=== PATIENT | female | born 1950 | race Caucasian/White ===

== ENCOUNTER 2017-12-21 13:42 | Emergency (ER) | payer MEDICARE, OTHER ==
[2017-12-21] MEDS ORDERED: FAMOTIDINE 20 MG TABLET PO ONE (14:54)
[2017-12-21] MEDS ORDERED: MAG HYDROX/AL HYDROX/SIMETH SUSP 30 ML UDCUP PO ONE (14:54)
[2017-12-21] MEDS ORDERED: LORAZEPAM INJ 2 MG/1 ML VIAL IV ONE ×3 (14:55→23:17)
[2017-12-21 15:05] LABS: ABSOLUTE EOSINOPHILS # (AUTO) 0.1 10^3/uL (0.0-0.6); ABSOLUTE MONOCYTES (AUTO) 0.3 10^3/uL (0.1-1.4); ABSOLUTE NEUT (AUTO) 3.6 10^3/uL (1.7-8.2); BASOPHILS % (AUTO) 0.7 % (0-2); EOSINOPHILS % (AUTO) 1.1 % (0-6); HEMATOCRIT 32.2 % (36.0-47.0); HEMOGLOBIN 10.7 g/dL (12.0-15.5); LYMPHOCYTES % (AUTO) 20.1 % (13-45); MEAN CORPUSCULAR HEMOGLOBIN 29.7 pg (27.0-33.4); MEAN CORPUSCULAR HGB CONC 33.1 g/dL (32.0-36.0); MEAN CORPUSCULAR VOLUME 90 fl (80-97); PLATELET COUNT 221 10^3/uL (150-450); RED BLOOD COUNT 3.59 10^6/uL (3.72-5.28); RED CELL DISTRIBUTION WIDTH 15.4 % (11.5-14.0); SEGMENTED NEUTROPHILS % (AUTO) 72.1 % (42-78); TOTAL CELLS COUNTED % (AUTO) 100 %; WHITE BLOOD COUNT 4.9 10^3/uL (4.0-10.5)
[2017-12-21 15:08] LABS: ALANINE AMINOTRANSFERASE 29 U/L (9-52); ALBUMIN 4.5 g/dL (3.5-5.0); ALKALINE PHOSPHATASE 99 U/L (38-126); ANION GAP 13 (5-19); ASPARTATE AMINO TRANSFERASE 57 U/L (14-36); BILIRUBIN,DIRECT 0.2 mg/dL (0.0-0.4); BILIRUBIN,TOTAL 0.6 mg/dL (0.2-1.3); BLOOD UREA NITROGEN 11 mg/dL (7-20); CALCIUM 8.9 mg/dL (8.4-10.2); CARBON DIOXIDE 27 mmol/L (22-30); CHLORIDE 94 mmol/L (98-107); GLUCOSE 130 mg/dL (75-110); LIPASE 104.4 U/L (23-300); POTASSIUM 4.6 mmol/L (3.6-5.0); SODIUM 134.4 mmol/L (137-145); TOTAL PROTEIN 7.3 g/dL (6.3-8.2)
--- NOTE | 2017-12-21 15:08 | ER Document Report ---
ED General - General Chief Complaint: Chest Pressure Stated Complaint: CHEST PAIN Time Seen by Provider: 12/21/17 14:28 Mode of Arrival: Medic Information source: Patient, Relative - [facility] Notes: Patient is a 67-year-old female history of alcoholism, cardiac stents prior to a three-vessel coronary bypass in 2006 with last negative cardiac stress test 1 year ago and history of upper endoscopy September 2017 showing peptic ulcer disease , gastric bypass 2004, tonsillectomy, thyroid disorder status post chemical ablation, [id number] diabetes, previous hysterectomy who is currently on Glucophage Synthroid Zoloft and rare as needed Ativan presents to the emergency department with report that she has been binge drinking for the last 6 days straight last had alcohol yesterday at 1800 and comes in with report that she walked out to take her trash and noted some chest pain and nausea, describing her chest pain is midepigastric to lower chest wall region. The patient reports no dyspnea, constipation, diarrhea, dysuria, fever, chills. She states she feels slightly tremulous related to not having any alcohol since yesterday. The patient was given aspirin in route by EMS and was given sublingual nitro without any change in her chest pain. She was given Zofran in route by EMS with some improvement in over nausea. Patient denies any significant back pain. No prior history of alcohol withdrawal seizures or pancreatitis by her report. She drinks up to 2-1/2 bottles 750 mL's of wine per day, but will go without alcohol on occasion. Patient also reports some left leg swelling. She denies any Trauma to the area. There is no history of congestive heart failure. The patient denies any pleuritic chest pain. The patient reports no pain to the left leg. The left leg is the donor site for her previous bypass. - Related Data Allergies/Adverse Reactions: codeine Allergy (Verified 12/21/17 14:40) Past Medical History - General Information source: Patient, Relative - Social History Smoking Status: Former Smoker Frequency of alcohol use: Heavy Drug Abuse: None Lives with: Alone Family History: Reviewed & Not Pertinent Patient has suicidal ideation: No Patient has homicidal ideation: No - Past Medical History Cardiac Medical History: Reports: Hx Hypertension Endocrine Medical History: Reports: Hx Diabetes Mellitus Type 2 Renal/ Medical History: Denies: Hx Peritoneal Dialysis Past Surgical History: Reports: Hx Hysterectomy, Hx Open Heart Surgery, Hx Tonsillectomy Review of Systems - Review of Systems -: Yes All other systems reviewed and negative Physical Exam - Vital signs Vitals: Resp 15 12/21/17 13:44 - Notes Notes: PHYSICAL EXAMINATION: GENERAL: Well-appearing, well-nourished and in no acute distress. HEAD: Atraumatic, normocephalic. EYES: Pupils equal round and reactive to light, extraocular movements intact, conjunctiva are normal. ENT: Nares patent, oropharynx clear without exudates. Moist mucous membranes. NECK: Normal range of motion, supple without lymphadenopathy LUNGS: Breath sounds clear to auscultation bilaterally and equal. No wheezes rales or rhonchi. HEART: Regular rate and rhythm without murmurs ABDOMEN: Soft, nontender, nondistended abdomen. No guarding, no rebound. No masses appreciated. Patient localizes her previous pain is midepigastric region to lower chest, but I am unable to reproduce it. Female : deferred Musculoskeletal: Normal range of motion. No cyanosis. No edema right lower extremity with 1+ edema left lower extremity. There are some scattered contusions both lower extremities. No palpable cord. Negative Homans. Previous surgical scar left lower extremity from bypass surgery is well-healed and appropriate. NEUROLOGICAL: Cranial nerves grossly intact. Normal speech, normal gait. Normal sensory, motor exams. Very minor tremor noted. PSYCH: Normal mood, normal affect. SKIN: Warm, Dry, normal turgor, no rashes or lesions noted. Course - Re-evaluation Re-evalutation: 12/21/17 20:20 Ultrasound was negative for DVT in the left leg. After 2 mg of IV Ativan and Pepcid and Maalox, the patient denied any further chest pain or abdominal pain and had no tremor whatsoever. On repeat exam she was commonly playing a game on her cell phone and was without complaint. I question a mild UTI, and urine culture was taken and patient was given Bactrim by mouth. Initial troponin negative but a 4-hour repeat troponin doubled from its previous value. Call was made to [facility] for possible transfer. 12/21/17 20:23 Patient was hypothyroid, most likely secondary to noncompliance with her medications. Patient was given an additional 1 mg of IV Ativan, but showed no obvious evidence for alcohol withdrawal. Discussion was undertaken with Home Care Assistant Dr. Merino at [facility] , and he accepted the patient in transfer. 12/21/17 21:56 - Vital Signs Vital signs: Temp Pulse Resp BP Pulse Ox 97.9 F 16 137/70 H 99 12/21/17 20:30 12/21/17 21:36 12/21/17 21:36 12/21/17 21:36 - Laboratory Result Diagrams: 12/21/17 13:47 12/21/17 13:47 Laboratory results interpreted by me: 12/21/17 12/21/17 12/21/17 13:47 13:47 13:47 RBC 3.59 L Hgb 10.7 L Hct 32.2 L RDW 15.4 H Sodium 134.4 L Chloride 94 L Glucose 130 H POC Glucose AST 57 H TSH 35.40 H Free T4 0.46 L Urine Ketones Ur Leukocyte Esterase 12/21/17 12/21/17 15:12 16:37 RBC Hgb Hct RDW Sodium Chloride Glucose POC Glucose 113 H AST TSH Free T4 Urine Ketones 20 H Ur Leukocyte Esterase TRACE H - EKG Interpretation by Me EKG shows normal: Sinus rhythm Additional EKG results interpreted by me: 12/21/17 15:09 EKG as interpreted by me showed normal sinus rhythm heart rate of 79. There is no gross evidence for acute [place] or ischemia noted. There was artifact appreciated in lead V2. There was no old EKG available for comparison. Critical Care Note - Critical Care Note Total time excluding time spent on procedures (mins): 46 Discharge - Discharge Clinical Impression: Unstable angina, Urinary tract bacterial infections, Alcohol abuse, Elevated troponin I level Chest pain Qualifiers: Chest pain type: other chest pain Qualified Code(s): R07.89 - Other chest pain ; R07.8 - Other chest pain Hypothyroidism Qualifiers: Hypothyroidism type: other Qualified Code(s): E03.8 - Other specified hypothyroidism Condition: Stable Disposition: [facility] Referrals: SHONA PALOMARES DO [Primary Care Provider] - Follow up as needed
[2017-12-21 15:09] LABS: ALCOHOL < 10 mg/dL (NONE DETECTED)
[2017-12-21 15:19] LABS: NT PRO BNP 154 pg/mL (5-900)
[2017-12-21 15:20] LABS: TROPONIN I < 0.012 ng/mL
--- NOTE | 2017-12-21 15:27 | RADIOLOGY REPORT (SQ) ---
EXAM DESCRIPTION: CHEST SINGLE VIEW COMPLETED DATE/TIME: 12/21/2017 3:06 pm REASON FOR STUDY: chest pain COMPARISON: None. EXAM PARAMETERS: NUMBER OF VIEWS: One view. TECHNIQUE: Single frontal radiographic view of the chest acquired. RADIATION DOSE: NA LIMITATIONS: None. FINDINGS: LUNGS AND PLEURA: No opacities, masses or pneumothorax. No pleural effusion. MEDIASTINUM AND HILAR STRUCTURES: No masses. Contour normal. HEART AND VASCULAR STRUCTURES: Heart normal in size. Normal vasculature. BONES: No acute findings. HARDWARE: CABG. OTHER: No other significant finding. IMPRESSION: NO ACUTE RADIOGRAPHIC FINDING IN THE CHEST. TECHNICAL DOCUMENTATION: JOB ID: [id number] [employer]- All Rights Reserved Reading location - IP/workstation name: [email or web address]
[2017-12-21 15:31] LABS: FREE T4 (FREE THYROXINE) 0.46 ng/dL (0.78-2.19)
[2017-12-21 15:45] LABS: THYROID STIMULATING HORMONE 35.4 uIU/mL (0.47-4.68)
[2017-12-21 16:39] LABS: INTERNATIONAL RATION (INR) 1.03
[2017-12-21 17:12] LABS: APPEARANCE,URINE CLEAR; BILIRUBIN,URINE NEGATIVE (NEGATIVE); COLOR,URINE YELLOW; GLUCOSE, URINE NEGATIVE (NEGATIVE); KETONES,URINE 20 mg/dL (NEGATIVE); LEUKOCYTE ESTERASE,URINE TRACE (NEGATIVE); NITRITE,URINE NEGATIVE (NEGATIVE); PROTEIN,URINE NEGATIVE (NEGATIVE); URINE SPECIFIC GRAVITY 1.012; UROBILINOGEN,URINE NEGATIVE mg/dL (<2.0)
[2017-12-21] MEDS ORDERED: NORMAL SALINE 1000 ML 1,000 ML IV ONE (17:35)
[2017-12-21] MEDS ORDERED: SULFAMETHOXAZOLE/TRIMETHOPRIM 800-160 MG TABLET PO ONE (20:22)
--- NOTE | 2017-12-21 21:21 | RADIOLOGY REPORT (SQ) ---
PROCEDURE: ULTRASOUND OF THE LEFT LOWER EXTREMITY DEEP VENOUS SYSTEM CLINICAL HISTORY and INDICATION: Left lower extremity swelling COMPARISON: None. TECHNIQUE: The study was done on 12/21/2017 at 3:50 PM Patton scale imaging with duplex interrogation of the left lower extremity venous system was performed and multiple static images were obtained. FINDINGS: Utilizing compression and augmentation, there is no deep venous thrombus in the left common femoral, superficial femoral or popliteal veins. The left profunda femoris, posterior tibial and deep peroneal veins are patent and compressible. . The bilateral greater saphenous vein at the saphenofemoral junction is patent and compressible. The left greater saphenous vein at the level of the thigh, knee and below the knee is also patent There is no visualization of any subcutaneous fluid collections in either lower extremity. There is no visualization of any fluid collections in the right and left popliteal fossa. There is no evidence of reactive or pathological lymphadenopathy in the evaluated bilateral lower extremities. IMPRESSION: No deep venous thrombosis of the left lower extremity. Location of Interpretation: [id number]
[2017-12-21 23:12] VITALS: BP 110/64
--- NOTE | 2017-12-21 23:16 | EKG REPORT ---
SEVERITY:- NORMAL ECG - SINUS RHYTHM : Confirmed by: Eloy Wall 21-Dec-2017 23:15:30
== END 2017-12-21 23:26 | disposition short-term general hospital (02) ==
LOC: ER 13:42
DX: I20.0 Unstable angina (principal); N39.0 Urinary tract infection, site not specified; B96.89 Other specified bacterial agents as the cause of diseases classified elsewhere; E03.8 Other specified hypothyroidism; R07.89 Other chest pain; R79.89 Other specified abnormal findings of blood chemistry; I10 Essential (primary) hypertension; E11.9 Type 2 diabetes mellitus without complications; Z90.710 Acquired absence of both cervix and uterus; Z95.1 Presence of aortocoronary bypass graft; Z98.84 Bariatric surgery status
CPT/HCPCS: 93005; 96376; 99291; 96361; 96374; 36415; 87086; 84439; 82962; 80307; 83690; 83735; 84443; 85025; 85610; 80053; 81001; 84484; 83880; 93971; 71045; 93010; A9270 ×2; J2060; J7030

== ENCOUNTER 2018-01-05 09:30 | Emergency (ER) | payer MEDICARE, OTHER ==
--- NOTE | 2018-01-05 10:22 | ER Document Report ---
ED General - General Mode of Arrival: Ambulatory Information source: Patient TRAVEL OUTSIDE OF THE [place] IN LAST 30 DAYS: No <LORENZO CASTORENA - Last Filed: 01/05/18 19:47> <INESSCOTTMALLIKA - Last Filed: 01/05/18 19:58> - General Chief Complaint: Alcohol Withdrawl Stated Complaint: SUICIDAL IDEATION Time Seen by Provider: 01/05/18 09:49 Notes: Patient is a 67 year old female with a history of [place] presents to the emergency department via EMS accompanied by son in law due to a fall and suicidal ideation. Patient initially states she does not know why she is here and looks to her son in law to answer why. She states the EMS brought her here and mentions her daughter cutting the rings off her finger. Son states the patient recently fell and her left hand began to swell and EMS was called. EMS states upon arrival to the scene the patient then began to have suicidal ideation. At bedside, patient states she feels her family would be better off if she was not here. When asked if a blood sample could be obtained from her she states "I will slice open my wrists and you can have all the blood from me". She admits a history of suicidal ideation and alcohol abuse but denies any suicidal attempts. (LORENZO CASTORENA) - Related Data Allergies/Adverse Reactions: codeine Allergy (Verified 12/21/17 14:40) Past Medical History - Social History Smoking Status: Unknown if Ever Smoked Chew tobacco use (# tins/day): No Frequency of alcohol use: Heavy Drug Abuse: None Family History: Reviewed & Not Pertinent Patient has suicidal ideation: No Patient has homicidal ideation: No - Past Medical History Cardiac Medical History: Reports: Hx Heart Attack, Hx Hypertension Endocrine Medical History: Reports: Hx Diabetes Mellitus Type 1, Hx Diabetes Mellitus Type 2 Past Surgical History: Reports: Hx Hysterectomy, Hx Open Heart Surgery, Hx Tonsillectomy <LORENZO CASTORENA - Last Filed: 01/05/18 19:47> Review of Systems - Review of Systems Constitutional: No symptoms reported EENT: No symptoms reported Cardiovascular: No symptoms reported Respiratory: No symptoms reported Gastrointestinal: No symptoms reported Genitourinary: No symptoms reported Female Genitourinary: No symptoms reported Musculoskeletal: See HPI Skin: No symptoms reported Hematologic/Lymphatic: No symptoms reported Neurological/Psychological: See HPI, Suicidal ideation -: Yes All other systems reviewed and negative <KELLLORENZO BELLA - Last Filed: 01/05/18 19:47> Physical Exam <KELLLORENZO BELLA - Last Filed: 01/05/18 19:47> <MALLIKA GRIER - Last Filed: 01/05/18 19:58> - Vital signs Vitals: Temp Pulse Resp BP Pulse Ox 98.0 F 80 16 130/75 H 100 01/05/18 17:48 01/05/18 17:48 01/05/18 17:48 01/05/18 17:48 01/05/18 17:48 - Notes Notes: GENERAL: Crying, appears agitated. No acute distress. HEAD: Normocephalic, atraumatic. EYES: Pupils equal, round, and reactive to light. Extraocular movements intact. ENT: Oral mucosa moist, tongue midline. Lips stained with red wine. NECK: Full range of motion. Supple. Trachea midline. LUNGS: Clear to auscultation bilaterally, no wheezes, rales, or rhonchi. No respiratory distress. HEART: Regular rate and rhythm. No murmurs, gallops, or rubs. ABDOMEN: Soft, non-tender. Non-distended. Bowel sounds present in all 4 quadrants. EXTREMITIES: Moves all 4 extremities spontaneously. No edema, radial and dorsalis pedis pulses 2/4 bilaterally. No cyanosis. NEUROLOGICAL: Alert, oriented to person and place. Not oriented to time, states it is the year 2011 and believes Nick is president. Normal speech. PSYCH: Crying. Agitated. SKIN: Warm, dry, normal turgor. No rashes or lesions noted. (KELLLORENZO) Course - Laboratory Result Diagrams: 01/05/18 12:00 01/05/18 12:00 <KELL,TAMMEERA - Last Filed: 01/05/18 19:47> - Laboratory Result Diagrams: 01/05/18 12:00 01/05/18 12:00 <MALLIKA GRIER - Last Filed: 01/05/18 19:58> - Re-evaluation Re-evalutation: 01/05/18 16:56 CBC shows slight leukopenia with white count of 3.4, CMP shows slightly elevated sodium at 146.1, AST and ALT are both slightly elevated at 174 and 82 respectively, this is not surprising given her history of chronic alcoholism, urinalysis shows trace leukocyte esterase, only 1 WBC, she has no symptoms of infection. We will not treat this at this time. Urine drug screen is negative , serum alcohol level is 276. Patient has no signs of alcohol withdrawal at this time. She does smell of alcohol and is somewhat intoxicated patient is somewhat belligerent at the beginning and refuses to cooperate with the examination. Patient was placed on involuntary hold as she stated several times that her family would be better off if she were not here in this world, patient then offered to provide a blood sample by slicing open the veins in her wrist and draining all the blood out of her body. Patient is now medically cleared and we await further input from behavioral health who also agrees that she should stay on a 24-hour hold for reassessment tomorrow. 01/05/18 19:57 Patient now complaining of some nausea, will be treated with Zofran, CIWA protocol has been placed. (MALLIKA GRIER) - Vital Signs Vital signs: Temp Pulse Resp BP Pulse Ox 98.0 F 80 16 130/75 H 100 01/05/18 17:48 01/05/18 17:48 01/05/18 17:48 01/05/18 17:48 01/05/18 17:48 - Laboratory Laboratory results interpreted by me: 01/05/18 01/05/18 01/05/18 12:00 12:00 12:18 WBC 3.4 L Hct 35.1 L RDW 17.6 H Sodium 146.1 H Chloride 97 L AST 174 H ALT 82 H Albumin 5.1 H Ur Leukocyte Esterase TRACE H Salicylates < 1.0 L Acetaminophen < 10 L - EKG Interpretation by Me Additional EKG results interpreted by me: 01/05/18 16:55 EKG shows sinus rhythm rate of 82, normal axis, normal intervals, no ST segment elevations or depressions, no T wave inversions, rapid R wave progression per my interpretation. (MALLIKA GRIER) Discharge <LORENZO CASTORENA - Last Filed: 01/05/18 19:47> <MALLIKA GRIER - Last Filed: 01/05/18 19:58> - Discharge Clinical Impression: Suicidal ideation, Alcohol abuse Condition: Stable Disposition: PSYCH HOSP/UNIT Referrals: SHONA PALOMARES, [Primary Care Provider] - Follow up as needed Scribe Attestation: 01/05/18 19:58 I personally performed the services described in the documentation, reviewed and edited the documentation which was dictated to the scribe in my presence, and it accurately records my words and actions. (MALLIKA GRIER) Scribe Documentation - Scribe Written by Jeremy:: Jeremy Julian, 01/05/2018 16:34 acting as scribe for :: Solomon <LORENZO CASTORENA - Last Filed: 01/05/18 19:47>
--- NOTE | 2018-01-05 10:51 | PSYCHOLOGICAL NOTE ---
Psych Note - Psych Note Date seen by psych provider: 01/05/18 Psych Note: pt presents via ems on a gurney, for ETOH abuse and a welfare check was done. Pt is refusing care and is very agitated. Pt states, " I do not have to stay here, I want to go home". 303.00 (F10.664) alcohol intoxication with use disorder; severe Impression/Plan: patient is currently under the influence and has impaired insight, judgment, and impulse control. Patient is recommend to IVC petition to enable evaluation once sober. Dr. Angel was consulted on the care and management of this patient; attending physician is in agreement with recommendations and disposition.
[2018-01-05 12:14] LABS: ABSOLUTE LYMPHOCYTES (AUTO) 1.1 10^3/uL (0.5-4.7); ABSOLUTE MONOCYTES (AUTO) 0.2 10^3/uL (0.1-1.4); ABSOLUTE NEUT (AUTO) 2.1 10^3/uL (1.7-8.2); BASOPHILS % (AUTO) 1.2 % (0-2); HEMATOCRIT 35.1 % (36.0-47.0); HEMOGLOBIN 12.1 g/dL (12.0-15.5); LYMPHOCYTES % (AUTO) 32.7 % (13-45); MEAN CORPUSCULAR HEMOGLOBIN 31.1 pg (27.0-33.4); MEAN CORPUSCULAR HGB CONC 34.4 g/dL (32.0-36.0); MEAN CORPUSCULAR VOLUME 90 fl (80-97); MONOCYTES % (AUTO) 4.9 % (3-13); PLATELET COUNT 259 10^3/uL (150-450); RED BLOOD COUNT 3.89 10^6/uL (3.72-5.28); RED CELL DISTRIBUTION WIDTH 17.6 % (11.5-14.0); SEGMENTED NEUTROPHILS % (AUTO) 60.2 % (42-78); TOTAL CELLS COUNTED % (AUTO) 100 %; WHITE BLOOD COUNT 3.4 10^3/uL (4.0-10.5)
[2018-01-05 12:39] LABS: ALANINE AMINOTRANSFERASE 82 U/L (9-52); ALBUMIN 5.1 g/dL (3.5-5.0); ALCOHOL 276 mg/dL (NONE DETECTED); ALKALINE PHOSPHATASE 126 U/L (38-126); ANION GAP 19 (5-19); ASPARTATE AMINO TRANSFERASE 174 U/L (14-36); BILIRUBIN,DIRECT 0.2 mg/dL (0.0-0.4); BILIRUBIN,TOTAL 0.5 mg/dL (0.2-1.3); BLOOD UREA NITROGEN 14 mg/dL (7-20); CARBON DIOXIDE 30 mmol/L (22-30); CHLORIDE 97 mmol/L (98-107); GLUCOSE 88 mg/dL (75-110); POTASSIUM 4.6 mmol/L (3.6-5.0); SODIUM 146.1 mmol/L (137-145)
[2018-01-05 12:40] LABS: APPEARANCE,URINE CLEAR; BILIRUBIN,URINE NEGATIVE (NEGATIVE); COLOR,URINE YELLOW; GLUCOSE, URINE NEGATIVE (NEGATIVE); KETONES,URINE NEGATIVE (NEGATIVE); LEUKOCYTE ESTERASE,URINE TRACE (NEGATIVE); NITRITE,URINE NEGATIVE (NEGATIVE); PROTEIN,URINE NEGATIVE (NEGATIVE); UROBILINOGEN,URINE NEGATIVE mg/dL (<2.0)
[2018-01-05 12:41] LABS: ACETAMINOPHEN < 10 ug/mL (10-30); SALICYLATE < 1.0 mg/dL (2.0-20.0)
[2018-01-05 13:10] LABS: URINE AMPHETAMINES SCREEN NEGATIVE; URINE BARBITURATES SCREEN NEGATIVE; URINE BENZODIAZEPINES SCREEN NEGATIVE; URINE COCAINE SCREEN NEGATIVE; URINE MARIJUANA (THC) SCREEN NEGATIVE; URINE METHADONE SCREEN NEGATIVE; URINE PHENCYCLIDINE SCREEN NEGATIVE
--- NOTE | 2018-01-05 13:10 | EKG REPORT ---
SEVERITY:- BORDERLINE ECG - SINUS RHYTHM BORDERLINE PROLONGED QT INTERVAL : Confirmed by: Marcelo Handley MD 05-Jan-2018 13:09:47
[2018-01-05] MEDS ORDERED: ONDANSETRON 4 MG TAB.RAPDIS PO ONE (19:23)
[2018-01-05] MEDS ORDERED: LORAZEPAM 1 MG TABLET PO PRN (20:26)
[2018-01-06 14:07] VITALS: BP 169/68
== END 2018-01-06 14:07 | disposition home or self-care (01) ==
LOC: ER 09:30
DX: F10.10 Alcohol abuse, uncomplicated (principal); R45.851 Suicidal ideations; W19.XXXA Unspecified fall, initial encounter; Y93.9 Activity, unspecified; Y92.9 Unspecified place or not applicable; Y99.9 Unspecified external cause status; Z88.5 Allergy status to narcotic agent; E11.9 Type 2 diabetes mellitus without complications; Z90.710 Acquired absence of both cervix and uterus; I10 Essential (primary) hypertension; I25.2 Old myocardial infarction
CPT/HCPCS: 93005; 99285; 36415; 82962; 80307 ×4; 85025; 80053; 81001; 93010; A9270 ×2; S0119

== ENCOUNTER 2018-05-03 16:29 | Emergency (ER) | payer MEDICARE, OTHER ==
[2018-05-03] MEDS ORDERED: ASPIRIN 81 MG TABLET, CHEWABLE PO ONE (18:12)
[2018-05-03] MEDS ORDERED: LORAZEPAM INJ 2 MG/1 ML VIAL IV ONE (18:14)
--- NOTE | 2018-05-03 18:18 | ER Document Report ---
ED General - General Chief Complaint: Chest Pain Stated Complaint: CHEST PAIN Time Seen by Provider: 05/03/18 18:12 Primary Care Provider: SHONA PALOMARES DO [Primary Care Provider] - Follow up tomorrow Mode of Arrival: Wheelchair Information source: Patient, [facility] Records Notes: 68-year-old female with coronary artery disease, history of triple bypass, alcoholism, type 2 diabetes presents with complaint of pain with deep breathing that started 12 hours prior to arrival. Patient states that this feels similar to when she had pleurisy a few years ago. She describes the pain as sharp and only present when breathing. She denies associated cough, nausea, diaphoresis, lightheadedness. Her last drink was approximately 12 hours ago. Patient does not have any interest in alcohol detox or talking with our behavioral health team. TRAVEL OUTSIDE OF THE [place] IN LAST 30 DAYS: No - HPI Onset: This morning Onset/Duration: Persistent Quality of pain: Throbbing Severity: Mild Associated symptoms: Chest pain, Hurts to breath, Shortness of breath. denies: Nonproductive cough, Productive cough, Fever, Headache, Nausea, Vomiting Exacerbated by: Coughing, Deep breathing Relieved by: Denies Similar symptoms previously: Yes Recently seen / treated by doctor: No - Related Data Allergies/Adverse Reactions: codeine Allergy (Verified 12/21/17 14:40) Past Medical History - General Information source: Patient, [facility] Records - Social History Smoking Status: Former Smoker Frequency of alcohol use: Heavy Drug Abuse: None Lives with: Alone Family History: Reviewed & Not Pertinent Patient has suicidal ideation: No Patient has homicidal ideation: No - Past Medical History Cardiac Medical History: Reports: Hx Heart Attack, Hx Hypertension Endocrine Medical History: Reports: Hx Diabetes Mellitus Type 1, Hx Diabetes Mellitus Type 2 Renal/ Medical History: Denies: Hx Peritoneal Dialysis Past Surgical History: Reports: Hx Hysterectomy, Hx Open Heart Surgery, Hx Tonsillectomy Review of Systems - Review of Systems Notes: REVIEW OF SYSTEMS: CONSTITUTIONAL : Denies fever, chills, or sweats. Denies recent illness. D enies weight loss, recent hospitalizations. EENT: Denies visual changes, eye pain. Denies sore throat, oral lesions, difficulty swallowing. CARDIOVASCULAR: Denies palpitations. Denies lower extremity edema. RESPIRATORY: Denies cough. Denies wheezing. GASTROINTESTINAL: Denies abdominal pain or distention. Denies nausea, vomiting, or diarrhea. Denies blood in vomitus, stools, or per rectum. Denies black, tarry stools. Denies constipation. GENITOURINARY: Denies difficulty urinating, painful urination, frequency, blood in urine, or vaginal discharge. MUSCULOSKELETAL: Denies back or neck pain or stiffness. Denies joint pain or swelling. SKIN: Denies rash, lesions or sores. HEMATOLOGIC : Denies easy bruising or bleeding. LYMPHATIC: Denies swollen glands. NEUROLOGICAL: Denies confusion or altered mental status. Denies loss of consciousness. Denies dizziness or lightheadedness. Denies headache. Denies weakness or paralysis. Denies problems difficulty with ambulation, slurred speech. Denies sensory loss, numbness, or tingling. Denies seizures. PSYCHIATRIC: Denies anxiety or stress. Denies depression, suicidal ideation, or homicidal ideation. Denies visual or auditory hallucinations. Physical Exam - Vital signs Vitals: Temp Pulse Resp BP Pulse Ox 98.0 F 78 18 154/70 H 99 05/03/18 16:46 05/03/18 16:46 05/03/18 16:46 05/03/18 16:46 05/03/18 16:46 - Notes Notes: PHYSICAL EXAMINATION: GENERAL: Well-appearing, well-nourished and in no acute distress. HEAD: Atraumatic, normocephalic. EYES: Pupils equal round and reactive to light, extraocular movements intact, conjunctiva are normal. ENT: Nares patent, oropharynx clear without exudates. Moist mucous membranes. NECK: Normal range of motion, supple without lymphadenopathy LUNGS: Breath sounds clear to auscultation bilaterally and equal. No wheezes rales or rhonchi. HEART: Regular rate and rhythm without murmurs ABDOMEN: Soft, nontender, nondistended abdomen. No guarding, no rebound. No masses appreciated. Female : deferred Musculoskeletal: Normal range of motion, no pitting or edema. No cyanosis. NEUROLOGICAL: Cranial nerves grossly intact. Normal speech, normal gait. Normal sensory, motor exams. AO x4. Minor tremor PSYCH: Normal mood, normal affect. Denies tactile, visual, auditory hallucinations. SKIN: Warm, Dry, normal turgor, no rashes or lesions noted. Course - Re-evaluation Re-evalutation: Laboratory 05/03/18 05/03/18 05/03/18 17:45 17:45 17:45 WBC 3.6 L RBC 3.07 L Hgb 9.4 L Hct 28.1 L MCV 92 MCH 30.6 MCHC 33.5 RDW 19.5 H Plt Count 331 Seg Neutrophils % 65.6 Lymphocytes % 23.3 Monocytes % 8.9 Eosinophils % 0.3 Basophils % 1.9 Absolute Neutrophils 2.3 Absolute Lymphocytes 0.8 Absolute Monocytes 0.3 Absolute Eosinophils 0.0 Absolute Basophils 0.1 PT 13.9 INR 1.02 Sodium 138.6 Potassium 4.3 Chloride 95 L Carbon Dioxide 29 Anion Gap 15 BUN 15 Creatinine 0.71 Est GFR ( Amer) > 60 Est GFR (Non-Af Amer) > 60 Glucose 133 H Calcium 9.5 Total Bilirubin 0.6 Direct Bilirubin 0.3 Neonat Total Bilirubin Not Reportable Neonat Direct Bilirubin Not Reportable Neonat Indirect Bili Not Reportable AST 62 H ALT 24 Alkaline Phosphatase 96 Creatine Kinase 150 H CK-MB (CK-2) Troponin I Total Protein 7.8 Albumin 4.9 05/03/18 17:45 WBC RBC Hgb Hct MCV MCH MCHC RDW Plt Count Seg Neutrophils % Lymphocytes % Monocytes % Eosinophils % Basophils % Absolute Neutrophils Absolute Lymphocytes Absolute Monocytes Absolute Eosinophils Absolute Basophils PT INR Sodium Potassium Chloride Carbon Dioxide Anion Gap BUN Creatinine Est GFR ( Amer) Est GFR (Non-Af Amer) Glucose Calcium Total Bilirubin Direct Bilirubin Neonat Total Bilirubin Neonat Direct Bilirubin Neonat Indirect Bili AST ALT Alkaline Phosphatase Creatine Kinase CK-MB (CK-2) 1.44 Troponin I < 0.012 Total Protein Albumin Chest/Abdomen CTA 05/03/18 18:12 IMPRESSION: Probable prior granulomatous disease. Atelectasis and consolidation in both lungs. Scattered interstitial disease of both lungs. No evidence of pulmonary embolus. Temp Pulse Resp BP Pulse Ox 97.9 F 78 14 123/89 H 99 05/03/18 22:01 05/03/18 16:46 05/03/18 22:01 05/03/18 22:01 05/03/18 22:01 68-year-old female presents with complaint of pain with inspiration. Denies any recent illness. Vital signs stable upon arrival. Patient does have a history of alcoholism but is without any evidence of alcohol withdrawal. States her last drink was less than 12 hours ago. Patient does not express interest in detox or speaking with behavioral health for possible placement into a facility for alcohol withdrawal. She states that she has been to these places a few tani es" they just do not work". CBC, CMP, cardiac enzymes are unremarkable. CTA was obtained to assess for PE and did show granulomatous disease. 05/03/18 21:54 Spoke to the patient's daughter Nona regarding the patient's CTA results. Patient has no evidence of PE but does show granulomatous disease and opacities in the lungs. Daughter states that patient was recently diagnosed and treated for pneumonia so this may be what we are seeing at this time. I have printed out all of the imaging and lab work performed today and urged the daughter to have the patient seen by her primary care physician in the next 24-48 hours and bring the paperwork with her. Patient's daughter is in agreement and is coming to hand picker the patient. 05/04/18 15:56 Patient was evaluated and treated as appropriate for the patient's presenting symptoms and complaint, with consideration of any critical or life threatening conditions that may be associated with their obtained history and exam as noted above. All results were discussed with patient and her daughter. Patient provided the opportunity to ask questions, and express concerns. Patient was educated on treatments based on their presumed diagnosis as noted above. At this time we will discharge the patient with return precautions and follow-up recommendations. Verbal discharge instructions given a the bedside. Medication warnings reviewed. Patient is in agreement with this plan and has verbalized understanding of return precautions. After careful consideration I feel that that patient can be safely discharged from the emergency department, they were advised to followup with a primary care physician in 2-3 days. Dictation on this chart was performed using voice recognition software and may result in unintended grammatical, spelling, syntax or errors. - Vital Signs Vital signs: Temp Pulse Resp BP Pulse Ox 97.9 F 78 14 123/89 H 99 05/03/18 22:01 05/03/18 16:46 05/03/18 22:01 05/03/18 22:01 05/03/18 22:01 - Laboratory Result Diagrams: 05/03/18 17:45 05/03/18 17:45 Laboratory results interpreted by me: 05/03/18 05/03/18 17:45 17:45 WBC 3.6 L RBC 3.07 L Hgb 9.4 L Hct 28.1 L RDW 19.5 H Chloride 95 L Glucose 133 H AST 62 H Creatine Kinase 150 H - Diagnostic Test Radiology reviewed: Image reviewed, Reports reviewed - EKG Interpretation by Me EKG shows normal: Sinus rhythm Rate: Normal Rhythm: NSR When compared to previous EKG there are: No significant change Discharge - Discharge Clinical Impression: Granulomatous lung disease, Pleurisy Dyspnea Qualifiers: Dyspnea type: unspecified Qualified Code(s): R06.00 - Dyspnea, unspecified Condition: Good Disposition: HOME, SELF-CARE Instructions: Chest Wall Pain ([facility]), Chest Pain of Unclear Cause ([facility]), Pleurisy ([facility]) Additional Instructions: Follow up with your [id number] hours for further care or return to the ED IMMEDIATELY if symptoms worsen or you have any concerns. If you cannot afford to follow up with your primary care physician a list of low cost clinics have been provided at the end of your discharge papers as well. Please take Motrin 400 mg every 8 hours as needed for pain Most prescribed medications have multiple side effects. The safest thing to do is when filling your prescription speak to your pharmacist regarding possible interactions with your normal home medications and over the counter medications such as Ibuprofen, Tylenol, Benadryl. If you experience any symptoms that cause you discomfort or concern you should discontinue the medication immediately and return to the emergency room or call your primary care physician. Prescriptions: Ibuprofen [Motrin 400 mg Tablet] 400 mg PO BID #14 tablet Forms: Elevated Blood Pressure Referrals: SHONA PALOMARES DO [Primary Care Provider] - Follow up tomorrow
[2018-05-03 18:22] LABS: ABSOLUTE BASOPHILS # (AUTO) 0.1 10^3/uL (0.0-0.2); ABSOLUTE LYMPHOCYTES (AUTO) 0.8 10^3/uL (0.5-4.7); ABSOLUTE MONOCYTES (AUTO) 0.3 10^3/uL (0.1-1.4); ABSOLUTE NEUT (AUTO) 2.3 10^3/uL (1.7-8.2); BASOPHILS % (AUTO) 1.9 % (0-2); EOSINOPHILS % (AUTO) 0.3 % (0-6); HEMATOCRIT 28.1 % (36.0-47.0); HEMOGLOBIN 9.4 g/dL (12.0-15.5); LYMPHOCYTES % (AUTO) 23.3 % (13-45); MEAN CORPUSCULAR HEMOGLOBIN 30.6 pg (27.0-33.4); MEAN CORPUSCULAR HGB CONC 33.5 g/dL (32.0-36.0); MEAN CORPUSCULAR VOLUME 92 fl (80-97); MONOCYTES % (AUTO) 8.9 % (3-13); PLATELET COUNT 331 10^3/uL (150-450); RED BLOOD COUNT 3.07 10^6/uL (3.72-5.28); RED CELL DISTRIBUTION WIDTH 19.5 % (11.5-14.0); SEGMENTED NEUTROPHILS % (AUTO) 65.6 % (42-78); TOTAL CELLS COUNTED % (AUTO) 100 %; WHITE BLOOD COUNT 3.6 10^3/uL (4.0-10.5)
[2018-05-03 18:25] LABS: INTERNATIONAL RATION (INR) 1.02; PROTHROMBIN TIME 13.9 SEC (11.4-15.4)
[2018-05-03 18:29] LABS: ALANINE AMINOTRANSFERASE 24 U/L (9-52); ALBUMIN 4.9 g/dL (3.5-5.0); ALKALINE PHOSPHATASE 96 U/L (38-126); ANION GAP 15 (5-19); ASPARTATE AMINO TRANSFERASE 62 U/L (14-36); BILIRUBIN,DIRECT 0.3 mg/dL (0.0-0.4); BILIRUBIN,TOTAL 0.6 mg/dL (0.2-1.3); BLOOD UREA NITROGEN 15 mg/dL (7-20); CALCIUM 9.5 mg/dL (8.4-10.2); CARBON DIOXIDE 29 mmol/L (22-30); CHLORIDE 95 mmol/L (98-107); CREATINE KINASE 150 U/L (30-135); GLUCOSE 133 mg/dL (75-110); POTASSIUM 4.3 mmol/L (3.6-5.0); SODIUM 138.6 mmol/L (137-145); TOTAL PROTEIN 7.8 g/dL (6.3-8.2)
[2018-05-03 18:41] LABS: CREATINE KINASE MB 1.44 ng/mL (<4.55)
[2018-05-03 18:42] LABS: TROPONIN I < 0.012 ng/mL
[2018-05-03] MEDS ORDERED: THIAMINE HCL 100 MG TABLET PO ONE (19:04)
[2018-05-03] MEDS ORDERED: FOLIC ACID 1 MG TABLET PO ONE (19:05)
--- NOTE | 2018-05-03 21:13 | RADIOLOGY REPORT (SQ) ---
EXAM DESCRIPTION: CT CHEST ANGIOGRAPHY WITHOUT THEN WITH IV CONTRAST COMPLETED DATE/TME: 05/03/2018 18:12 CLINICAL HISTORY: 68 years, Female, Pain with breathing COMPARISON: None. TECHNIQUE: Images stored on PACS. All CT scanners at this facility use dose modulation, iterative reconstruction, and/or weight based dosing when appropriate to reduce radiation dose to as low as reasonably achievable (ALARA). PROCEDURE: CLINICAL HISTORY: 68 years Female Pain with breathing COMPARISON: None. TECHNIQUE: Contiguous axial images were obtained through the chest during the infusion of IV contrast. Reformatted images obtained. MIP reformatted images obtained. This exam was performed according to our department optimization program which includes automated exposure control, adjustment of the mA and/or kv according to patient size and/or use of iterative reconstruction technique. FINDINGS: There is a 2 mm calcific density in the right lateral lung suggesting prior granulomatous disease. There is also atelectasis and consolidation involving each lung. Multiple punctate calcifications involve the spleen. There are postsurgical changes of the stomach and chest. There is scattered groundglass opacifications of both lungs. Calcified nodular densities at the left lung base also suggests prior granulomatous infection. There is scattered atelectasis elsewhere in both lungs. No pneumothorax is seen. Heart size is normal. No pleural effusions. No lymphadenopathy. No PE is seen. No evidence of aortic aneurysm. No other significant abnormality. IMPRESSION: Probable prior granulomatous disease. Atelectasis and consolidation in both lungs. Scattered interstitial disease of both lungs. No evidence of pulmonary embolus.
[2018-05-03] MEDS ORDERED: KETOROLAC TROMETHAMINE INJ/PF 30 MG/1 ML SDV IV ONE (21:43)
--- NOTE | 2018-05-03 21:46 | EKG REPORT ---
SEVERITY:- BORDERLINE ECG - BORDERLINE T ABNORMALITIES, DIFFUSE LEADS BORDERLINE PROLONGED QT INTERVAL SINUS RHYTHM : Confirmed by: Maria Del Rosario Watson MD 03-May-2018 21:44:59
[2018-05-03 22:17] VITALS: BP 123/89
== END 2018-05-03 22:17 | disposition home or self-care (01) ==
LOC: ER 16:29
DX: J84.10 Pulmonary fibrosis, unspecified (principal); R06.00 Dyspnea, unspecified; R09.1 Pleurisy; R07.9 Chest pain, unspecified; Z87.891 Personal history of nicotine dependence; I10 Essential (primary) hypertension; I25.10 Atherosclerotic heart disease of native coronary artery without angina pectoris; E11.9 Type 2 diabetes mellitus without complications
CPT/HCPCS: 93005; 99285; 96374; 96375; 36415; 82553; 82550; 85025; 85610; 80053; 84484; 71275; 93010; A9270 ×3; J1885; J2060

== ENCOUNTER 2018-06-15 13:15 | Emergency (ER) | payer MEDICARE, OTHER ==
--- NOTE | 2018-06-15 13:34 | ER Document Report ---
ED General - General Chief Complaint: Fall Stated Complaint: FALL Time Seen by Provider: 06/15/18 13:32 Primary Care Provider: SHONA PALOMARES DO [Primary Care Provider] - Follow up tomorrow DONYA DE PAZ MD [ACTIVE STAFF] - Follow up in 3-5 days TRAVEL OUTSIDE OF THE [place] IN LAST 30 DAYS: No - HPI Notes: 68-year-old female with a medical history of diabetes, hypothyroidism presents to the ED via EMS for an unwitnessed fall at [facility] approximately 2 hours ago. Patient is awake alert and orientated, states she was walking, she hurt her foot she fell and hit her head, states she does not remember anything woke up in a woman was with her. Blood sugar on initial evaluation with EMS was 109, vitals otherwise stable. Patient presents in c-collar. Denies any cardiac history besides hypertension and having a bypass in 1995, no new fevers, chills Denies fevers, chills, chest pain,palpitations, shortness of breath, dyspnea, nausea, vomiting, diarrhea, abdominal pain, hematuria,blurred vision, double vision, loss of vision, speech changes, LH, dizziness, syncope, headaches, wheezing, ST, URI, neck pain, weakness, bowel or bladder dysfunction, saddle anesthesia, numbness or tingling in bilateral upper or lower extremities equally, muscle paralysis, weakness in bilateral upper or lower extremities equally or rash. Denies IV drug use. - Related Data Allergies/Adverse Reactions: codeine Allergy (Verified 12/21/17 14:40) Past Medical History - General Information source: Patient - Social History Smoking Status: Never Smoker Family History: Reviewed & Not Pertinent - Past Medical History Cardiac Medical History: Reports: Hx Heart Attack, Hx Hypertension Endocrine Medical History: Reports: Hx Diabetes Mellitus Type 1, Hx Diabetes Mellitus Type 2 Renal/ Medical History: Denies: Hx Peritoneal Dialysis Past Surgical History: Reports: Hx Hysterectomy, Hx Open Heart Surgery, Hx Tonsillectomy Review of Systems - Review of Systems Constitutional: See HPI EENT: No symptoms reported Cardiovascular: No symptoms reported Respiratory: No symptoms reported Gastrointestinal: No symptoms reported Genitourinary: No symptoms reported Female Genitourinary: No symptoms reported Musculoskeletal: See HPI Skin: No symptoms reported Hematologic/Lymphatic: No symptoms reported Neurological/Psychological: No symptoms reported Physical Exam - Vital signs Vitals: Resp Pulse Ox 11 L 99 06/15/18 13:26 06/15/18 13:26 - Notes Notes: PHYSICAL EXAMINATION: GENERAL: Well-appearing, well-nourished and in no acute distress. HEAD: Atraumatic, normocephalic. hematoma to left orbital area EYES: Pupils equal round and reactive to light, extraocular movements intact, conjunctiva are normal. ENT: Nares patent, oropharynx clear without exudates. Moist mucous membranes. NECK: Normal range of motion, supple without lymphadenopathy LUNGS: Breath sounds clear to auscultation bilaterally and equal. No wheezes rales or rhonchi. HEART: Regular rate and rhythm without murmurs ABDOMEN: Soft, nontender, nondistended abdomen. No guarding, no rebound. No masses appreciated. Female : deferred Musculoskeletal: Normal range of motion, no pitting or edema. No cyanosis. NEUROLOGICAL: Cranial nerves grossly intact. Normal speech, normal gait. Normal sensory, motor exams PSYCH: Normal mood, normal affect. SKIN: Warm, Dry, normal turgor, no rashes or lesions noted. left tenderness on lateral aspect of dorsal aspect of foot. left foot with STS and tenderness on metatarsal bones with palpation. Unable to palpate a step-off. No open lesions. squeeze test negative. dtr +2 BLE. Limited APROM. distal pulses + 2 in BUE. full motor and sensory function. No vascular compromise. Ankle exam within normal limits. No noted lacerations, lesions, ulcers or break in the skin. Course - Re-evaluation Re-evalutation: 06/15/18 17:44 Afebrile, vitals stable no distress. CT head negative for acute stroke, CT cervical spine negative for any acute fracture dislocation, facial CT negative for acute fracture, patient does have a left hematoma over orbital area, left foot x-ray does show that patient has an angulated displaced fracture of the distal talus. Patient has not been nauseous, no disorientation or confusion. Patient states that she tripped while she was at [employer] which subsequently led to her falling in which she hit her head, patient woke up, remembers [employer] worker standing right by her. Initial set troponin negative, MP negative for hepatic renal dysfunction, no electrolyte disturbances, CBC negative for anemia, no leukocytosis. Urinalysis unremarkable. patient has been awake alert and oriented throughout duration of initial presentation. Second set troponin negative. Daughter, Em at bedside, discussed with her the importance of concussion protocol. Discussed concussion protocol such as being woken up every hour by someone you live with, be asked orientation questions and to call 911 if any neurological changes occur such as speech changes, weakness on one side, unable to orient, nausea, vomiting, or severe headache, etc. pt verbalized understanding of this care and agreed to plan of care. discussed worrisome symptoms as well as reasons for return over what time frame. patient states understanding and is agreeable with plan. Patient is to follow-up with library specialist within the next 3 to 5 days for casting of left foot fracture patient given 750 mg IV Levaquin for bilateral pneumonia seen on chest x-ray, will start her on outpatient oral Levaquin daily for 10 days, follow-up with primary care provider tomorrow. Consent by patient given to place short leg splint,. cms intact, sensory motor function intact in bilateral lower extremities prior to splint application fiberglass splint placed without incident. cms intact 20 minutes after splint application. Splint is in good alignment. Bilateral lower extremities with motor and sensory function intact 20 minutes after application. Pt stated that splint felt comfortable. After performing a Medical Screening Examination, I estimate there is LOW risk for RUPTURED ESOPHAGUS, PNEUMOTHORAX, PULMONARY EMBOLISM, ACUTE CORONARY SYNDROME, OR THORACIC AORTIC DISSECTION, temporal arteritis, meningitis, intracranial hemorrhage, ischemic stroke, acute glaucoma thus I consider the discharge disposition reasonable. I have reevaluated this patient multiple times and no significant life threatening changes are noted. The patient and I have discussed the diagnosis and risks, and we agree with discharging home with close follow- up. We also discussed returning to the Emergency Department immediately if new or worsening symptoms occur. We have discussed the symptoms which are most concerning (e.g., bloody sputum, severe headache, new numbness or weakness, vomiting, slurred speech worsening pain or shortness of breath) that necessitate immediate return. - Vital Signs Vital signs: Temp Pulse Resp BP Pulse Ox 88 21 H 148/78 H 100 06/15/18 19:22 06/15/18 20:21 06/15/18 20:21 06/15/18 20:21 - Laboratory Result Diagrams: 06/15/18 13:30 06/15/18 15:55 Laboratory results interpreted by me: 06/15/18 06/15/18 13:30 15:55 RBC 2.80 L Hgb 8.6 L Hct 26.3 L RDW 20.4 H Chloride 108 H Est GFR (Non-Af Amer) 57 L Creatine Kinase 139 H - EKG Interpretation by Me EKG shows normal: Sinus rhythm Rate: Normal Rhythm: NSR Discharge - Discharge Clinical Impression: Concussion, Foot fracture, left, Pneumonia Condition: Stable Disposition: HOME, SELF-CARE Instructions: Concussion ([facility]), Contusion ([facility]), Foot Fracture ([facility]), Pneumonia ([facility]), Post-Concussion Syndrome ([facility]) Additional Instructions: Concussion You have suffered a concussion -- a temporary loss of certain brain functions due to a mild brain injury. The recovery is usually rapid and complete. The temporary problems occurring with a concussion can include loss of consciousness, dizziness, nausea, vomiting, and confusion. Repeat concussions can cause brain damage. In the future, avoid activities that will cause a blow to your head. Wear a helmet for sports such as snowboarding, biking, or skating. It's important that someone be with you for the first 24 hours. During this time, do not exercise or drive a vehicle. Do not take any pain medication stronger than acetaminophen unless prescribed by the physician. Any significant changes should be reported immediately to the physician. Signs of a problem may include: (1) Mental confusion (2) Incoordination or staggering (3) Repeated or forceful vomiting (4) Clear or bloody drainage from ear, mouth, or nose (5) Severe headache, not relieved by acetaminophen or prescribed pain medication (6) Failure to improve in 24 hours Foot Fracture You have a fracture in one of the small bones of the foot. Some foot fractures are very serious, while others are no more serious than a sprain. This fracture should heal well, but requires protection for proper healing. Initially, you should elevate and ice pack the foot, and bear no weight on it. Usually, a cast or a walking boot will be required. Some milder foot fractures can be managed with temporary rest, then a firm shoe. Your physician has determined the seriousness of your foot fracture and has outlined the treatment plan for you. You should follow up as instructed to insure that the fracture heals without complications. Call the doctor or return at once if pain or swelling becomes severe, if a re-injury occurs, or if any part of the foot becomes numb. Prescriptions: Levofloxacin [Levaquin 750 mg Tablet] 750 mg PO DAILY #9 tablet Referrals: SHONA PALOMARES DO [Primary Care Provider] - Follow up tomorrow DONYA DE PAZ MD [ACTIVE STAFF] - Follow up in 3-5 days
[2018-06-15 14:03] LABS: ABSOLUTE EOSINOPHILS # (AUTO) 0.1 10^3/uL (0.0-0.6); ABSOLUTE MONOCYTES (AUTO) 0.4 10^3/uL (0.1-1.4); BASOPHILS % (AUTO) 0.7 % (0-2); EOSINOPHILS % (AUTO) 1.7 % (0-6); HEMATOCRIT 26.3 % (36.0-47.0); HEMOGLOBIN 8.6 g/dL (12.0-15.5); LYMPHOCYTES % (AUTO) 22.5 % (13-45); MEAN CORPUSCULAR HEMOGLOBIN 30.7 pg (27.0-33.4); MEAN CORPUSCULAR HGB CONC 32.7 g/dL (32.0-36.0); MEAN CORPUSCULAR VOLUME 94 fl (80-97); MONOCYTES % (AUTO) 8.2 % (3-13); PLATELET COUNT 246 10^3/uL (150-450); RED CELL DISTRIBUTION WIDTH 20.4 % (11.5-14.0); SEGMENTED NEUTROPHILS % (AUTO) 66.9 % (42-78); TOTAL CELLS COUNTED % (AUTO) 100 %; WHITE BLOOD COUNT 4.5 10^3/uL (4.0-10.5)
--- NOTE | 2018-06-15 14:30 | RADIOLOGY REPORT (SQ) ---
EXAM DESCRIPTION: CT HEAD WITHOUT; CT FACIAL AREA WITHOUT COMPLETED DATE/TIME: 06/15/2018 2:18 pm REASON FOR STUDY: unwitnessed fall, facial hematoma, lf foot pain COMPARISON: None. TECHNIQUE: Axial images acquired through the brain and facial bones without intravenous contrast. I mages reviewed with bone, brain and subdural windows. Additional sagittal and coronal reconstruction s were generated. Images stored on PACS. All CT scanners at this facility use dose modulation, iterative reconstruction, and/or weight based d osing when appropriate to reduce radiation dose to as low as reasonably achievable (ALARA). [facility]: Dose Right [facility]: CareDose [facility]: Dose Right [facility]: Teradose 4D [facility]: [employer] RADIATION DOSE: CT Rad equipment meets quality standard of care and radiation dose reduction techniq ues were employed. CTDIvol: 53.2 mGy. DLP: 964 mGy-cm.; CT Rad equipment meets quality standard of ca re and radiation dose reduction techniques were employed. CTDIvol: 30.4 mGy. DLP: 488 mGy-cm. mGy. LIMITATIONS: None. FINDINGS: VENTRICLES: Normal size and contour. CEREBRUM: No masses. No hemorrhage. No midline shift. No evidence for acute infarction. Normal gra y/white matter differentiation. No areas of low density in the white matter. CEREBELLUM: No masses. No hemorrhage. No alteration of density. No evidence for acute infarction. EXTRAAXIAL SPACES: No fluid collections. No masses. ORBITS AND GLOBE: No intra- or extraconal masses. Normal contour of globe without masses. FACIAL BONES: No fracture or dislocation of the facial bones. CALVARIUM: No fracture. PARANASAL SINUSES: No fluid or mucosal thickening. SOFT TISSUES: Soft tissue hematoma over the left forehead. OTHER: No other significant finding. IMPRESSION: 1. No acute intracranial pathology. 2. No fracture or dislocation of the facial bones. 3. Soft tissue hematoma over the left forehead. EVIDENCE OF ACUTE STROKE: NO. COMMENT: Quality ID # [id number]: Final reports with documentation of one or more dose reduction techniques (e.g., Automated exposure control, adjustment of the mA and/or kV according to patient size, use of iterative reconstruction technique) TECHNICAL DOCUMENTATION: JOB ID: [id number] [employer]- All Rights Reserved Reading location - IP/workstation name: [email or web address]
--- NOTE | 2018-06-15 14:35 | RADIOLOGY REPORT (SQ) ---
EXAM DESCRIPTION: CT CERVICAL SPINE WITHOUT COMPLETED DATE/TIME: 06/15/2018 2:17 pm REASON FOR STUDY: unwitnessed fall, facial hematoma, lf foot pain COMPARISON: None. TECHNIQUE: Axial images acquired through the cervical spine without intravenous contrast. Images re viewed with lung, soft tissue and bone windows. Reconstructed coronal and sagittal MPR images review ed. Images stored on PACS. All CT scanners at this facility use dose modulation, iterative reconstruction, and/or weight based d osing when appropriate to reduce radiation dose to as low as reasonably achievable (ALARA). [facility]: Dose Right [facility]: CareDose [facility]: Dose Right [facility]: Teradose 4D [facility]: [employer] RADIATION DOSE: CT Rad equipment meets quality standard of care and radiation dose reduction techniq ues were employed. CTDIvol: 18.6 mGy. DLP: 355 mGy-cm. mGy. LIMITATIONS: None. FINDINGS: ALIGNMENT: Anatomic. MINERALIZATION: Normal. VERTEBRAL BODIES: No fractures or dislocation. DISCS: Mild multilevel disc degenerative disease. FACETS, LATERAL MASSES, POSTERIOR ELEMENTS: No fractures. No dislocation. No acute findings. HARDWARE: None in the spine. VISUALIZED RIBS: No fractures. LUNG APICES AND SOFT TISSUES: No significant or acute findings. OTHER: No other significant finding. IMPRESSION: No fracture or static subluxation of the cervical spine. TECHNICAL DOCUMENTATION: JOB ID: [id number] Quality ID # [id number]: Final reports with documentation of one or more dose reduction techniques (e.g., Au tomated exposure control, adjustment of the mA and/or kV according to patient size, use of iterative reconstruction technique) 2010 [employer]- All Rights Reserved Reading location - IP/workstation name: [email or web address]
--- NOTE | 2018-06-15 14:47 | RADIOLOGY REPORT (SQ) ---
EXAM DESCRIPTION: CHEST 2 VIEWS COMPLETED DATE/TIME: 06/15/2018 2:38 pm REASON FOR STUDY: unwitnessed fall COMPARISON: 12/21/2017 EXAM PARAMETERS: NUMBER OF VIEWS: two views TECHNIQUE: Digital Frontal and Lateral radiographic views of the chest acquired. RADIATION DOSE: NA LIMITATIONS: none FINDINGS: LUNGS AND PLEURA: There are bilateral basilar infiltrates consistent with pneumonia left g reater than right. No effusions. MEDIASTINUM AND HILAR STRUCTURES: No masses or contour abnormalities. HEART AND VASCULAR STRUCTURES: Heart normal size. No evidence for failure. BONES: No acute findings. HARDWARE: Sternotomy wires are in place. OTHER: No other significant finding. IMPRESSION: Bibasilar infiltrates consistent with pneumonia. Left greater than right. TECHNICAL DOCUMENTATION: JOB ID: [id number] [employer]- All Rights Reserved Reading location - IP/workstation name: [email or web address]
--- NOTE | 2018-06-15 14:50 | RADIOLOGY REPORT (SQ) ---
EXAM DESCRIPTION: FOOT LEFT COMPLETE COMPLETED DATE/TIME: 06/15/2018 2:38 pm REASON FOR STUDY: unwitnessed fall, facial hematoma, lf foot pain COMPARISON: None. NUMBER OF VIEWS: Three views. TECHNIQUE: AP, lateral and oblique radiographic images acquired of the left foot. LIMITATIONS: None. FINDINGS: MINERALIZATION: Normal. BONES: Linear osseous density on the dorsal surface of the distal talus. Otherwise no acute fracture or dislocation. Prominent plantar calcaneal spur. No worrisome bone lesions. JOINTS: No effusions. SOFT TISSUES: No soft tissue swelling. No foreign body. OTHER: No other significant finding. IMPRESSION: MINIMALLY DISPLACED AVULSION FRACTURE ON THE DORSAL SURFACE OF THE DISTAL TALUS. TECHNICAL DOCUMENTATION: JOB ID: [id number] [employer]- All Rights Reserved Reading location - IP/workstation name: [email or web address]
[2018-06-15] MEDS ORDERED: LEVOFLOXACIN 500 MG/D5W RTU 500 MG/100 ML RTUPB IV ONE (15:37)
[2018-06-15 16:28] LABS: ALANINE AMINOTRANSFERASE 15 U/L (9-52); ALBUMIN 4.4 g/dL (3.5-5.0); ALCOHOL 130 mg/dL (NONE DETECTED); ALKALINE PHOSPHATASE 52 U/L (38-126); ANION GAP 12 (5-19); ASPARTATE AMINO TRANSFERASE 36 U/L (14-36); BILIRUBIN,DIRECT 0.2 mg/dL (0.0-0.4); BILIRUBIN,TOTAL 0.2 mg/dL (0.2-1.3); BLOOD UREA NITROGEN 15 mg/dL (7-20); CALCIUM 9.3 mg/dL (8.4-10.2); CARBON DIOXIDE 24 mmol/L (22-30); CHLORIDE 108 mmol/L (98-107); CREATINE KINASE 139 U/L (30-135); GLUCOSE 81 mg/dL (75-110); POTASSIUM 4.1 mmol/L (3.6-5.0); SODIUM 143.5 mmol/L (137-145); TOTAL PROTEIN 7.3 g/dL (6.3-8.2)
[2018-06-15 16:36] LABS: CREATINE KINASE MB 2.22 ng/mL (<4.55)
[2018-06-15 16:42] LABS: TROPONIN I < 0.012 ng/mL
[2018-06-15 16:47] LABS: APPEARANCE,URINE CLEAR; BILIRUBIN,URINE NEGATIVE (NEGATIVE); COLOR,URINE STRAW; GLUCOSE, URINE NEGATIVE (NEGATIVE); KETONES,URINE NEGATIVE (NEGATIVE); LEUKOCYTE ESTERASE,URINE NEGATIVE (NEGATIVE); NITRITE,URINE NEGATIVE (NEGATIVE); PROTEIN,URINE NEGATIVE (NEGATIVE); UROBILINOGEN,URINE NEGATIVE mg/dL (<2.0)
[2018-06-15 17:21] LABS: URINE AMPHETAMINES SCREEN NEGATIVE; URINE BARBITURATES SCREEN NEGATIVE; URINE BENZODIAZEPINES SCREEN NEGATIVE; URINE COCAINE SCREEN NEGATIVE; URINE MARIJUANA (THC) SCREEN NEGATIVE; URINE METHADONE SCREEN NEGATIVE; URINE PHENCYCLIDINE SCREEN NEGATIVE
--- NOTE | 2018-06-15 19:47 | EKG REPORT ---
SEVERITY:- NORMAL ECG - SINUS RHYTHM : Confirmed by: Maria Del Rosario Watson MD 15-Jun-2018 19:47:23
[2018-06-15 20:55] VITALS: BP 148/78
== END 2018-06-15 20:55 | disposition home or self-care (01) ==
LOC: ER 13:15
DX: S06.0X9A Concussion with loss of consciousness of unspecified duration, initial encounter (principal); S92.152A Displaced avulsion fracture (chip fracture) of left talus, initial encounter for closed fracture; S00.12XA Contusion of left eyelid and periocular area, initial encounter; W19.XXXA Unspecified fall, initial encounter; Y92.512 Supermarket, store or market as the place of occurrence of the external cause; J18.9 Pneumonia, unspecified organism; E11.9 Type 2 diabetes mellitus without complications; I10 Essential (primary) hypertension; Z88.5 Allergy status to narcotic agent
CPT/HCPCS: 93005; 99284; 96365; 96366; 36415; 87040; 82553; 80307 ×2; 82550; 85025; 80053; 81001; 84484; 71046; 73630; 70450; 70486; 72125; 93010; 29515; J1956